=== PATIENT | female | born 1965 | race Caucasian/White ===

== ENCOUNTER → 2016-04-05 | Outpatient (CLI) | payer OTHER | END | disposition home or self-care (01) | LOC: LABPAT 14:38 | PROVIDERS: ATTEND Orthopaedic Surgery | DX: Z01.812 Encounter for preprocedural laboratory examination (principal) | CPT/HCPCS: 87070 ==

== ENCOUNTER 2016-05-06 06:02 | Inpatient (IN) | payer OTHER ==
[2016-05-01 14:38] VITALS: BMI 52.4
--- NOTE | 2016-05-05 12:06 | HP ---
DATE OF ADMISSION: 05/06/2016 Delores Agosto is a 50-year-old patient seen with symptomatic left knee osteoarthritis. After having treatment options discussed, she elected to proceed with left total knee arthroplasty. Consent was obtained. Medical clearance was provided Dr. Clifford's office. Past medical history is hyperlipidemia, hypertension. Past surgical history is right knee arthroscopy, right total knee arthroplasty, left knee arthroscopy. DAILY MEDICATIONS: 1. Atorvastatin. 2. Lansoprazole. 3. Spironolactone. 4. Multiple gmms-dwe-cfhnnmg vitamins. Allergies are MORPHINE, CODEINE, TALWIN, LORTAB, TRAMADOL. SOCIAL HISTORY: Patient denies tobacco use. Physical evaluation of the left knee: Range of motion is -3 to 110 degrees. There is tenderness along the medial joint line. Positive medial Taz's. Ligaments are stable. Hip rotation is without pain. Crepitus along the patellofemoral compartment as well as medial compartment and lateral compartments with range of motion, pain on patellofemoral compression. Hip rotation without pain. Distal neurovascular exam is intact. Radiographs which were obtained of the left knee revealed severe osteoarthritis involving all 3 compartments. IMPRESSION: Left knee osteoarthritis. PLAN: Left total knee arthroplasty.
[~2016-05-06 06:02] MED LIST: ACETAMINOPHEN TAB 500 MG TAB PO ONE; DEXAMETHASONE SOD PHOSPHATE 10 MG/ML 1 ML VIAL IV ONE; LACTATED RINGERS 1,000 ML IV SCH; MELOXICAM 7.5 MG TAB PO ONE; MIDAZOLAM 2 MG/2 ML VIAL IV PRN; ONDANSETRON 4 MG/2 ML VIAL IVP ONE; SCOPOLAMINE 1.5MG/72HR PATCH TRANSDERM ONE; TRANEXAMIC ACID 1,000 MG in SODIUM CHLORIDE 0.9% 100 ML IVPB ONE; ceFAZolin 3 GM in SODIUM CHLORIDE 0.9% 100 ML IVPB ONE; fentaNYL (PF) 50 MCG/ML 2 ML AMP IV PRN
[2016-05-06] MEDS ORDERED: ROPIVACAINE 1,100 MG, SODIUM CHLORIDE 0.9% 330 ML MISCELLANE PRN ×2 (07:19)
--- NOTE | 2016-05-06 07:22 | P.ONQ ---
Anesthesiology Proc Note - PNB - Peripheral Nerve Block Performed Left Adductor Canal Procedure Start Time: 07:00 Procedure Stop Time: 07:15 Indication: Acute Post-Operative Pain, Analgesia Sedation Type: Awake Preparation: Sterile Prep Position: Supine Catheter: Indwelling Needle Types: On-Q Needle Size: 50mm (2") Needle Gauge: 18 Technique: Ultrasound Injectate: 0.5% Ropivacaine (see comment for volume) Blood Aspirated: No Pain Paresthesia on Injection Noted: No Resistance on Injection: Normal Events: Uneventful and Well Tolerated
[2016-05-06] MEDS ORDERED: LIDOCAINE 1% INJ 10MG/ML (20 ML MDV) ONE (07:29)
[2016-05-06] MEDS ORDERED: ACETAMINOPHEN IV (For NPO) 1,000 MG/100 ML VIAL ONE (07:29)
[2016-05-06] MEDS ORDERED: KETOROLAC 30 MG/ML 1 ML VIAL ONE (07:29)
[2016-05-06] MEDS ORDERED: ROCURONIUM BROMIDE 10 MG/ML 10 ML VIAL IV ONE (07:29)
[2016-05-06] MEDS ORDERED: PROPOFOL 10 MG/ML 20 ML VIAL IV ONE (07:29)
[2016-05-06] MEDS ORDERED: MIDAZOLAM 2 MG/2 ML VIAL ONE (07:29)
[2016-05-06] MEDS ORDERED: LABETALOL 5 MG/ML VIAL MDV ONE (07:29)
[2016-05-06] MEDS ORDERED: TRANEXAMIC ACID 1,000 MG/10 ML VIAL ONE (07:29)
[2016-05-06] MEDS ORDERED: SUCCINYLCHOLINE CHLORIDE VIAL 200 MG/10 ML VIAL IV ONE (07:29)
[2016-05-06] MEDS ORDERED: SODIUM CHLORIDE 0.9% 100 ML BAG ONE (07:29)
[2016-05-06] MEDS ORDERED: fentaNYL (PF) 50 MCG/ML 2 ML AMP ONE (07:29)
[2016-05-06] MEDS ORDERED: ROPIVACAINE 246.25 MG, EPINEPHrine 0.5 MG, KETOROLAC 30 MG, cloNIDine HCL/PF 80 MCG, WA... MISCELLANE ONE ×5 (07:35)
[2016-05-06] MEDS ORDERED: LACTATED RINGERS 1,000 ML IV ONE ×2 (08:16→09:20)
[2016-05-06] MEDS ORDERED: ceFAZolin 3,000 MG in SODIUM CHLORIDE 0.9% IRRIGATIO 3,000 ML IRRIGATION ONE (08:17)
[2016-05-06] MEDS ORDERED: HYDROmorphone 1 MG/ML 1 ML SYRINGE IVP PRN ×3 (09:54)
[2016-05-06] MEDS ORDERED: HYDROcodone/APAP 7.5-325MG 1 EACH TAB PO PRN (09:54)
[2016-05-06] MEDS ORDERED: TEMAZEPAM 15 MG CAP PO PRN (09:54)
[2016-05-06] MEDS ORDERED: ONDANSETRON 4 MG/2 ML VIAL IVP PRN (09:54)
[2016-05-06] MEDS ORDERED: NALOXONE 0.4 MG/ML 1 ML VIAL IV PRN (09:54)
--- NOTE | 2016-05-06 09:54 | P.OP ---
Date of Procedure: 05/06/16 Preoperative Diagnosis: Left knee osteoarthritis Postoperative Diagnosis: Left knee osteoarthritis Procedure(s) Performed: Left total knee arthroplasty Implants: 1. Conrado persona size 9 left narrow cemented cruciate retaining femoral component 2. Conrado persona size F left cemented tibial component 3. Conrado persona 10 mm medial congruent left polyethylene tibial insert 4. Conrado persona 38 mm all polyethylene cemented patella Anesthesia: GETA, regional (Adductor canal block), local Surgeon: Andrew Bliss Stretcher Leveler Operator Helper #1: Ole Gramajo Estimated Blood Loss (ml): 50 Pathology: other (Bone) Condition: stable Disposition: PACU Indications for Procedure: 50-year-old patient seen with symptomatic left knee osteoarthritis. After treatment options were discussed, she elected to proceed with left total knee arthroplasty. Operative Findings: See description of procedure Description of Procedure: Patient was taken to the operative suite after having undergone and adductor canal block. Patient underwent a general anesthetic by the department of anesthesia. Patient was given preoperative IV intake antibiotics and TXA. A well-padded tourniquet was placed about the left lower extremity. The lower extremity was then prepped and draped in the normal sterile orthopedic fashion. The extremity was elevated, a tourniquet was insufflated to 350. A standard anterior incision was made sharply through skin. Dissection was taken down through the subcutaneous soft tissues down to the extensor mechanism. A medial arthrotomy was performed, patella was everted and knee was flexed. There was advanced osteoarthritis noted involving all 3 compartments. A proximal tibial cutting guide was positioned. Proximal tibial cut was made. A distal intramedullary femoral cutting guide was positioned, distal femoral cut made. We placed the appropriate sizing guide and selected the appropriate size. A distal 4-in-1 femoral cutting block was positioned, distal femoral cuts were made. We now placed a trial femoral component into position, along with an appropriate size tibial tray and insert. We now took the knee through range of motion and had full extension good flexion and good overall soft tissue balance noted. The patella was everted and a flush cut made with patellar quad tendon. We templated the patella, appropriate drill holes were made. An appropriate trial patella was positioned, knee was taken through full range of motion with the patella tracking very nicely. The trial patella was removed. Drill holes were made through the femoral component. All trial components were removed after marking off the appropriate rotation of the tibia. Retractors were now positioned along the proximal tibia. An appropriate keel punch was made with the appropriate size tibial guide. At this point appropriate size implants were chosen and opened. The joint was irrigated copiously with pulse lavage mechanical irrigation. The deep soft tissues were infiltrated local analgesic. We mixed antibiotic methylmethacrylate. Once the methyl methacrylate was ready, the tibial component was cemented into place removing any excess methylmethacrylate. The femoral component was cemented into place removing the removing any excess methylmethacrylate. We then inserted the appropriate size polyethylene tibial insert. We made sure that it was locked into position. We took the knee into full extension, and then back in a flexion making sure we had removed any excess methylmethacrylate. The patellar component was then cemented down and secured with clamp. Excess methylmethacrylate removed. We kept the knee in full extension, patellar clamp in position until methylmethacrylate had hardened. Once it had hardened the patellar clamp was removed. The knee was taken through full range of motion. The patella tracked nicely. There was good soft tissue balancing. The tourniquet was now released. Additional hemostasis was achieved via electrocautery. A second gram of TXA was given. The wound was irrigated with pulse lavage mechanical irrigation. The superficial soft tissues were infiltrated local analgesic. The extensor mechanism was repaired with Vicryl. We checked the repair with range of motion and it was stable. The subcutaneous soft tissues were repaired with Vicryl in layers. The skin was approximated with pernio/Dermabond. Sterile dressings were applied followed by loose web roll and Noel bandage. The patient was transferred to a bed, and taken to recovery in stable and satisfactory condition. Ole PRIETO assisted with the procedure.
[2016-05-06] MEDS ORDERED: ROPIVACAINE 5 MG/ML 30 ML VIAL MISCELLANE ONE (10:35)
[2016-05-06] MEDS ORDERED: ONDANSETRON 4 MG/2 ML VIAL IVP ONE (10:53)
[2016-05-06] MEDS ORDERED: HYDROmorphone 1 MG/ML 1 ML SYRINGE IVP ONE ×2 (10:54→10:59)
[2016-05-06] MEDS ORDERED: SODIUM CHLORIDE 0.9% 1,000 ML IV ONE (11:32)
--- NOTE | 2016-05-06 13:15 | P.CONS ---
History of Present Illness - Reason for Consult Consult date: 05/06/16 Medical management Requesting physician: Andrew Bliss - Chief Complaint Left total knee arthroplasty - History of Present Illness This is a 50-year-old female, patient of [facility]. She has a known past medical history of hyperlipidemia, hypertension and GERD. She has been suffering with left knee pain and underwent a left total knee arthroplasty with Dr. Bliss. She is postop day #0. Estimated blood loss was 50 mL. No complications. Patient is sitting in bed comfortably. Denies any chest pain, shortness of breath, nausea or vomiting. Did have a bowel movement prior to surgery. Denies any difficulty or burning with urination prior to surgery. Currently has Green catheter in place. We've been consulted for medical management. Review of Systems Please refer to HPI otherwise unremarkable Past Medical History Past Medical History: GERD/Reflux, Hyperlipidemia, Hypertension History of Any Multi-Drug Resistant Organisms: None Reported Past Surgical History: Orthopedic Surgery Additional Past Surgical History / Comment(s): LEFT KNEE ARTHROSCOPY X2, RT KNEE ARTHROSCOPY, MIKE FOOT SX ON TOES Past Anesthesia/Blood Transfusion Reactions: Postoperative Nausea & Vomiting ( PONV) Past Psychological History: No Psychological Hx Reported Smoking Status: Never smoker Past Alcohol Use History: Occasional Past Drug Use History: None Reported - Past Family History Mother Family Medical History: No Reported History Medications and Allergies Home Medications Medication Instructions Recorded Confirmed Type Ascorbic Acid [Vitamin C] 500 mg PO DAILY 05/01/16 05/06/16 History Atorvastatin [Lipitor] 10 mg PO DAILY 05/01/16 05/06/16 History Biotin 5 mg PO DAILY 05/01/16 05/06/16 History Lansoprazole [Prevacid] 30 mg PO DAILY 05/01/16 05/06/16 History Motrin Unknown Dose 1 tab PO DIRECTED PRN 05/01/16 05/06/16 History Multivitamins, Thera [Multivitamin] 1 tab PO DAILY 05/01/16 05/06/16 History Spironolactone 50 mg PO DAILY 05/01/16 05/06/16 History Allergies Allergy/AdvReac Type Severity Reaction Status Date / Time codeine AdvReac Nausea & Verified 05/06/16 06:18 Vomiting hydrocodone [From Lortab] AdvReac Nausea & Verified 05/06/16 06:22 Vomiting morphine AdvReac Nausea & Verified 05/06/16 06:18 Vomiting tramadol AdvReac Nausea & Verified 05/06/16 06:18 Vomiting Physical Exam Vitals: Vital Signs Temp Pulse Resp BP Pulse Ox 05/06/16 11:15 89 16 125/61 97 05/06/16 11:00 83 16 129/65 93 L 05/06/16 10:47 89 18 133/69 95 05/06/16 10:35 85 16 140/70 99 05/06/16 10:28 86 16 138/70 98 05/06/16 10:15 97.0 F L 83 14 127/66 97 05/06/16 06:25 97.9 F 82 16 137/78 96 Intake and Output 05/05/16 05/06/16 05/06/16 22:59 06:59 14:59 Intake Total 600 5500 Output Total 395 Balance 600 5105 Intake: IV 600 5500 Output: Urine 345 Estimated Blood Loss 50 Other: Weight 147.418 kg Patient Weight 05/07/16 06:59 Weight 147.418 kg Head normocephalic Neck supple Lungs clear to auscultation bilaterally no wheezing or crackles Heart regular rate and rhythm S1-S2, no rub or gallop Abdomen is soft nontender nondistended positive bowel sounds no hepatosplenomegaly Extremities no edema. Left knee Noel wrapped. Dressing clean dry and intact. + 2 dorsalis pedis pulse. Able to wiggle her toes Neuro alert and orientated to 3 Assessment and Plan Plan: 1. Osteoarthritis of the left knee: Status post Left total knee arthroplasty postoperative day #0. Estimated blood loss 50 mL. Continue pain management per orthopedic protocol 2. Hyperlipidemia resume statin 3. Essential hypertension resume her Aldactone 4. GERD: Continue with Pepcid GI prophylaxis Pepcid and DVT prophylaxis Lovenox per orthopedic protocol We'll check CBC and CMP. Patient for this consultation we will continue to follow along with you. Time with Patient: Greater than 30 (Greater than 50% of the total time spent in counseling and coordination of care.I performed an examination of the patient and discussed their management with the physician Physician Specialist. I have reviewed the Physician Physician Specialist's notes and agree with the documented findings and plan of care)
[2016-05-06] MEDS: HYDROcodone/APAP 7.5-325MG 1 EACH TAB PO PRN (13:55)
[2016-05-06] MEDS: hydrOXYzine PAMOATE 25 MG CAP PO PRN (13:55)
[2016-05-06 14:10] LABS: Basophils % (A) 0 %; CH 30.2; CHCM 32.8; Eosinophils % (A) 0 %; HCT 38.6 % (34.0-46.0); HDW 2.49; HGB 12.6 gm/dL (11.4-16.0); Luc # (Auto) 0.05; Luc % (Auto) 0; Lymphocytes # (A) 0.7 k/uL (1.0-4.8); Lymphocytes % (A) 6 %; MCH 30.1 pg (25.0-35.0); MCHC 32.6 g/dL (31.0-37.0); MCV 92.3 fL (80.0-100.0); Mean Platelet Volume 8.2; Monocytes # (A) 0.2 k/uL (0-1.0); Monocytes % (A) 2 %; Neutrophils # (A) 9.6 k/uL (1.3-7.7); Neutrophils % (A) 91 %; RBC 4.19 m/uL (3.80-5.40); RDW 12.5 % (11.5-15.5); WBC 10.6 k/uL (3.8-10.6); WBC (Perox) 10.29
[2016-05-06 14:14] LABS: ALT 45 U/L (9-52); AST 37 U/L (14-36); Alkaline Phosphatase 71 U/L (38-126); Anion Gap 13 mmol/L; Blood Urea Nitrogen 16 mg/dL (7-17); Calcium 9.3 mg/dL (8.4-10.2); Carbon Dioxide 23 mmol/L (22-30); Chloride 104 mmol/L (98-107); Glucose 167 mg/dL (74-99); Non-African American GFR(MDRD) >60 (>60 ml/min/1.73 sqM); Sodium 140 mmol/L (137-145); Total Bilirubin 0.5 mg/dL (0.2-1.3); Total Protein 6.7 g/dL (6.3-8.2)
[2016-05-06 14:18] LABS: Potassium 4.9 mmol/L (3.5-5.1)
[2016-05-06] MEDS: ceFAZolin 3 GM in SODIUM CHLORIDE 0.9% 100 ML IVPB SCH (16:06)
[2016-05-06] MEDS: LACTATED RINGERS 1,000 ML IV SCH (16:08)
--- NOTE | 2016-05-06 16:10 | XR ---
EXAMINATION TYPE: XR knee limited LT DATE OF EXAM: 05/06/2016 10:57 AM CLINICAL HISTORY: Postoperative evaluation Two views of the left knee are submitted. Identified are changes of total knee arthroplasty with fem oral and tibial components appearing well seated. Postsurgical soft tissue changes are noted. Align ment is anatomic.
[2016-05-06] MEDS: SENNOSIDES-DOCUSATE SODIUM 1 EACH TAB PO SCH (20:45)
[2016-05-07] MEDS: ceFAZolin 3 GM in SODIUM CHLORIDE 0.9% 100 ML IVPB SCH (00:49)
[2016-05-07] MEDS: HYDROcodone/APAP 7.5-325MG 1 EACH TAB PO PRN ×4 (04:41→21:17)
[2016-05-07] MEDS: hydrOXYzine PAMOATE 25 MG CAP PO PRN ×2 (04:42→21:18)
[2016-05-07] MEDS: LACTATED RINGERS 1,000 ML IV SCH ×3 (04:44→16:08)
[2016-05-07 07:31] LABS: Basophils % (A) 0 %; CH 30.2; CHCM 31.6; Eosinophils % (A) 0 %; HCT 35.5 % (34.0-46.0); HDW 2.38; HGB 11.2 gm/dL (11.4-16.0); Luc # (Auto) 0.28; Luc % (Auto) 2; Lymphocytes # (A) 1.7 k/uL (1.0-4.8); Lymphocytes % (A) 15 %; MCH 30.1 pg (25.0-35.0); MCHC 31.4 g/dL (31.0-37.0); MCV 95.8 fL (80.0-100.0); Mean Platelet Volume 8.1; Monocytes # (A) 0.7 k/uL (0-1.0); Monocytes % (A) 6 %; Neutrophils % (A) 76 %; RBC 3.71 m/uL (3.80-5.40); RDW 12.5 % (11.5-15.5); WBC 11.7 k/uL (3.8-10.6); WBC (Perox) 12.46
[2016-05-07] MEDS: SPIRONOLACTONE 25 MG TAB PO SCH (08:26)
[2016-05-07] MEDS: FAMOTIDINE 20 MG TAB PO SCH (08:27)
[2016-05-07] MEDS: ENOXAPARIN 30 MG/0.3 ML SYRINGE SQ SCH ×2 (08:27→20:25)
[2016-05-07] MEDS: ATORVASTATIN 10 MG TAB PO SCH (08:27)
[2016-05-07] MEDS: MELOXICAM 7.5 MG TAB PO SCH (08:27)
[2016-05-07] MEDS: ASCORBIC ACID 500 MG TAB PO SCH (08:28)
--- NOTE | 2016-05-07 11:26 | P.PN ---
Subjective Principal diagnosis: Status post left total knee arthroplasty Patient seen today resting in her hospital chair. Patient is a little fatigued today, she feels the pain medication may be a little too strong. She is ambulated with therapy. She denies headaches, lightheadedness, chest pain, shortness of breath, fever or chills. Objective - Vital Signs Vital signs: Vital Signs Temp 96.0 F L 05/07/16 07:56 Pulse 57 L 05/07/16 07:56 Resp 16 05/07/16 07:56 BP 121/69 05/07/16 07:56 Pulse Ox 99 05/07/16 07:56 Intake & Output 05/06/16 05/07/16 05/07/16 18:59 06:59 18:59 Intake Total 5980 1200 480 Output Total 395 3700 900 Balance 5585 -2500 -420 Weight 147.418 kg Intake: IV 5500 1200 Lactated Ringers 1,000 ml 1200 @ 100 mls/hr IV .Q10H CHRISTINE Rx#:[id number] Oral 480 480 Output: Urine 345 3700 900 Uretheral (Green) 3700 600 Estimated Blood Loss 50 Other: Voiding Method Indwelling Catheter Indwelling Catheter Indwelling Catheter - Exam Left lower extremity: Incision is clean, dry, and intact. Medial and lateral aspects of the incision there is minimal ecchymosis present. Calf is soft, no tenderness with palpation. Plantar flexion, dorsiflexion, EHL, FHL are intact. Sensory exam to light touch throughout the extremities intact, cap refills less than 3 seconds. - Labs CBC & Chem 7: 05/07/16 07:01 05/06/16 13:35 Labs: Abnormal Lab Results - Last 24 Hours (Table) 05/06/16 05/06/16 05/07/16 Range/Units 13:35 13:35 07:01 WBC 11.7 H (3.8-10.6) k/uL RBC 3.71 L (3.80-5.40) m/uL Hgb 11.2 L (11.4-16.0) gm/dL Neutrophils # 9.6 H 9.0 H (1.3-7.7) k/uL Lymphocytes # 0.7 L (1.0-4.8) k/uL Glucose 167 H (74-99) mg/dL AST 37 H (14-36) U/L Assessment and Plan Plan: Assessment: 1. Postop day #1 status post left total knee arthroplasty Plan: 1. Pain control, continue supportive oral medications. We'll decrease pain medication at this time 2. Continue CPM and therapy 3. Daily dressing changes/ice and elevate 4. Encourage incentive spirometer 5. GI and DVT prophylaxis, we'll begin Xarelto 10 mg tomorrow and discontinue Lovenox 6. Medical recommendations 7. Discharge planning: Patient will be discharged home likely tomorrow Time with Patient: Less than 30
--- NOTE | 2016-05-07 11:27 | P.DS ---
Providers Date of admission: 05/06/16 06:02 Expected date of discharge: 05/08/16 Attending physician: Andrew Bliss Consults: 05/06/16 09:54 Consult Physician Routine Consulting Provider: Drake Marcus Consult Reason/Comments: Medical management Do you want consulting provider notified?: Yes Primary care physician: Bridget Clifford Hospital Course: Date of admission: 05/06/2016 Date of discharge: 05/08/2016 Admission diagnosis: Status post left total knee arthroplasty Discharge diagnosis: Same Attending physician: Dr. Bliss Surgical procedures: Left total knee arthroplasty Brief history: Patient is a 50-year-old female with a history of progressive primary left knee osteoarthritis. At this point patient has failed conservative treatment measures and has opted to proceed with a elective left total knee arthroplasty. Hospital course: Details of patient's surgery can be found in operative report. Patient tolerated the procedure well and was subsequently transported to orthopedic floor. Patient's orthopeidc and medical care was provided daily. Patient had daily laboratory tests performed for evaluation of overall blood counts. Patient had daily physical therapy to include strengthening range of motion as well as education with walker ambulation. Patient had daily CPM usage as part of their physical therapy program. Patient was treated with Xarelto and Lovenox for their postoperative DVT prophylaxis during their inpatient stay. Patient was noted to have a relatively uneventful postoperative course. Patient reported satisfactory pain control with oral pain medications by postoperative day 0. Patient showed satisfactory progress with physical therapy. Patient moved steadily through the program and had no difficulty meeting the goals by postoperative day 2. Given patient's otherwise satisfactory course and having met physical therapy goals, plan is to discharge patient home on postoperative day 2. Discharge condition/disposition: Patient will be discharged home in stable condition. Discharge medications: Instructions are given on resumption of patient's normal daily medications per primary care recommendation, in addition patient will be prescribed [place] 7.5 mg/325 mg, tramadol 50 mg, Colace 100 mg, Xarelto 10 mg. Discharge instructions: 1. Wound care and infection precautions, keep incision dry and covered while showering, no lotions, creams, moisturizers. No soaking, tubs, pools, hottubs. Do not scrub over the incision. 2. Weight-bear as tolerated with walker / cane until follow-up. 3. Ice and elevate when necessary. Do not exceed 20 minutes per hour with ice pack. 4. Utilize compression sleeve until seen at first follow up appointment. 5. Visiting nursing care. 6. Home physical therapy including home CPM. 7. Pain meds and anticoagulants per prescription. 8. Pain medication has potential to cause constipation. Increase oral fluid and fiber intake. Contact primary care provider if you have not had a bowel movement within 48 hours after discharge 9. No anti-inflammatory medication until discussed at first post operative visit, this including Motrin, Aleve, Mobic, Diclofenac. 10. Follow up in office at 2 weeks postop with Jayesh Gramajo PA-C 11. Follow up with your primary care doctor 7-10 days after discharge. 12. Contact [facility] with any questions, . Procedures: Left total knee arthroplasty Patient Condition at Discharge: Good Plan - Discharge Summary New Discharge Prescriptions: Docusate [Colace] 100 mg PO DAILY #20 capsule HYDROcodone/APAP 7.5-325MG [[place] 7.5-325] 1 - 2 each PO Q6HR PRN #60 tab PRN Reason: Pain Rivaroxaban [Xarelto] 10 mg PO DAILY #14 tab traMADol HCl [Ultram] 50 mg PO Q6H PRN #40 tab PRN Reason: Pain Discharge Medication List Ascorbic Acid [Vitamin C] 500 mg PO DAILY 05/01/16 [History] Atorvastatin [Lipitor] 10 mg PO DAILY 05/01/16 [History] Biotin 5 mg PO DAILY 05/01/16 [History] Lansoprazole [Prevacid] 30 mg PO DAILY 05/01/16 [History] Multivitamins, Thera [Multivitamin] 1 tab PO DAILY 05/01/16 [History] Spironolactone 50 mg PO DAILY 05/01/16 [History] Rivaroxaban [Xarelto] 10 mg PO DAILY #14 tab 05/06/16 [Rx] Docusate [Colace] 100 mg PO DAILY #20 capsule 05/08/16 [Rx] HYDROcodone/APAP 7.5-325MG [[place] 7.5-325] 1 - 2 each PO Q6HR PRN #60 tab [Rx] traMADol HCl [Ultram] 50 mg PO Q6H PRN #40 tab 05/08/16 [Rx] Follow up Appointment(s)/Referral(s): Ole Gramajo PAC [PHYSICIAN PONY TRIMMER] - 05/22/16 2:20 pm Bridget Clifford DO [Primary Care Provider] - 05/22/16 1:00 pm Patient Instructions/Handouts: *Surgery [facility] - Scopalamine Patch Instructions, Knee Replacement (DC) Activity/Diet/Wound Care/Special Instructions: [facility] - Orthopedic Discharge Instructions: 1. Wound care and infection precautions, keep incision dry and covered while showering, no lotions, creams, moisturizers. No soaking, pools, hot tubs. Do not scrub over incision. 2. Weight-bear as tolerated with walker / cane until follow-up. 3. Ice and elevate when necessary. Do not exceed 20 minutes per hour with ice pack. 4. Utilize compression sleeve until seen at first follow up appointment. 5. Visiting nursing care. 6. Home physical therapy including home CPM. 7. Pain meds and anticoagulants per prescription. 8. Pain medication has potential to cause constipation. Increase oral fluid and fiber intake. Contact primary care provider if you have not had a bowel movement within 48 hours after discharge. 9. No anti-inflammatory medication until discussed at first post operative visit, this including Motrin, Aleve, Mobic, Diclofenac. 10. Follow up in office at 2 weeks postop with Jayesh Gramajo PA-C 11. Follow up with your primary care doctor 7-10 days after discharge. 12. Contact [facility] with any questions, . Discharge Disposition: HOME WITH HOME HEALTH SERVICES
[2016-05-07] MEDS: MULTIVITAMINS, THERA 1 EACH TAB PO SCH (12:14)
--- NOTE | 2016-05-07 16:54 | P.PN ---
Subjective Patient is a 50-year-old female, patient [facility] She has a known past medical history of hyperlipidemia, hypertension and GERD. She has been suffering with left knee pain and underwent a left total knee arthroplasty with Dr. Bliss. She is postop day #1. Patient is sitting in bed comfortably. Denies any chest pain, shortness of breath, nausea or vomiting. Did have a bowel movement prior to surgery. Denies any difficulty or burning with urination prior to surgery. Objective - Vital Signs Vital signs: Vital Signs Temp 97.9 F 05/07/16 14:27 Pulse 88 05/07/16 14:27 Resp 17 05/07/16 14:27 BP 159/95 05/07/16 14:27 Pulse Ox 99 05/07/16 14:27 Intake & Output 05/06/16 05/07/16 05/07/16 18:59 06:59 18:59 Intake Total 5980 1200 960 Output Total 395 3700 900 Balance 5585 -2500 60 Weight 147.418 kg Intake: IV 5500 1200 Lactated Ringers 1,000 ml 1200 @ 100 mls/hr IV .Q10H CHRISTINE Rx#:[id number] Oral 480 960 Output: Urine 345 3700 900 Uretheral (Green) 3700 600 Estimated Blood Loss 50 Other: Voiding Method Indwelling Catheter Indwelling Catheter Indwelling Catheter - Exam HEENT head normocephalic and atraumatic Neck is supple no JVD no goiter no lymphadenopathy Chest is clear to auscultation no wheezing Cardiac exam reveals regular heart sounds no murmurs Abdomen is soft nontender no organomegaly Extremity exam reveals no edema no cyanosis or clubbing - Labs CBC & Chem 7: 05/07/16 07:01 05/06/16 13:35 Labs: Abnormal Lab Results - Last 24 Hours (Table) 05/07/16 Range/Units 07:01 WBC 11.7 H (3.8-10.6) k/uL RBC 3.71 L (3.80-5.40) m/uL Hgb 11.2 L (11.4-16.0) gm/dL Neutrophils # 9.0 H (1.3-7.7) k/uL Assessment and Plan Plan: 1. Osteoarthritis of the left knee: Status post Left total knee arthroplasty postoperative day #1. Continue pain management per orthopedic protocol 2. Hyperlipidemia resume statin 3. Essential hypertension resume her Aldactone 4. GERD: Continue with Pepcid GI prophylaxis Pepcid and DVT prophylaxis Lovenox per orthopedic protocol We'll check CBC and CMP in a.m. possible discharge to home tomorrow
[2016-05-07] MEDS: SENNOSIDES-DOCUSATE SODIUM 1 EACH TAB PO SCH (20:25)
[2016-05-08] MEDS: LACTATED RINGERS 1,000 ML IV SCH (02:17)
[2016-05-08] MEDS: hydrOXYzine PAMOATE 25 MG CAP PO PRN (02:18)
[2016-05-08] MEDS: HYDROcodone/APAP 7.5-325MG 1 EACH TAB PO PRN ×2 (02:18→08:15)
[2016-05-08 07:33] LABS: Basophils # (A) 0.1 k/uL (0-0.2); Basophils % (A) 1 %; CH 30.2; CHCM 31.6; Eosinophils # (A) 0.1 k/uL (0-0.7); Eosinophils % (A) 2 %; HCT 36.3 % (34.0-46.0); HDW 2.31; HGB 11.3 gm/dL (11.4-16.0); Luc # (Auto) 0.24; Luc % (Auto) 3; Lymphocytes # (A) 2.2 k/uL (1.0-4.8); Lymphocytes % (A) 25 %; MCH 29.9 pg (25.0-35.0); MCHC 31.2 g/dL (31.0-37.0); Mean Platelet Volume 8.1; Monocytes # (A) 0.6 k/uL (0-1.0); Monocytes % (A) 7 %; Neutrophils # (A) 5.6 k/uL (1.3-7.7); Neutrophils % (A) 63 %; RBC 3.78 m/uL (3.80-5.40); RDW 12.5 % (11.5-15.5); WBC 8.8 k/uL (3.8-10.6); WBC (Perox) 9.37
[2016-05-08 07:38] LABS: ALT 27 U/L (9-52); AST 23 U/L (14-36); Alkaline Phosphatase 65 U/L (38-126); Anion Gap 10 mmol/L; Blood Urea Nitrogen 12 mg/dL (7-17); Calcium 9.3 mg/dL (8.4-10.2); Carbon Dioxide 25 mmol/L (22-30); Chloride 104 mmol/L (98-107); Glucose 96 mg/dL (74-99); Non-African American GFR(MDRD) >60 (>60 ml/min/1.73 sqM); Potassium 4.4 mmol/L (3.5-5.1); Sodium 139 mmol/L (137-145); Total Bilirubin 0.9 mg/dL (0.2-1.3); Total Protein 6.6 g/dL (6.3-8.2)
[2016-05-08 08:00] VITALS: BP 148/81; PULSE 94; RESP 17; TEMP 96.6
[2016-05-08] MEDS: MELOXICAM 7.5 MG TAB PO SCH (08:15)
[2016-05-08] MEDS: FAMOTIDINE 20 MG TAB PO SCH (08:15)
[2016-05-08] MEDS: SPIRONOLACTONE 25 MG TAB PO SCH (08:15)
[2016-05-08] MEDS: ASCORBIC ACID 500 MG TAB PO SCH (08:15)
[2016-05-08] MEDS: ATORVASTATIN 10 MG TAB PO SCH (08:15)
[2016-05-08] MEDS: MULTIVITAMINS, THERA 1 EACH TAB PO SCH (08:15)
[2016-05-08] MEDS ORDERED: RIVAROXABAN 10 MG TAB PO SCH (09:00)
--- NOTE | 2016-05-08 09:15 | P.PN ---
Progress Note - Text The patient is status post right adductor canal catheter placement. The catheter was placed for postoperative pain control, status post total right arthroplasty. Ropivacaine 0.2% is infusing at 12 mLs per hour. The patient has no complaints of right lower extremity numbness or weakness. Patient's VAS score is 4 -10. Assessment: Patient's adductor canal catheter is in place and working appropriately. Plan: The adductor canal catheter will be DC'd this morning, the fluid has all been used. Pain meds will be provided to the patient by the service.
--- NOTE | 2016-05-08 11:39 | P.PN ---
Subjective Principal diagnosis: Status post left total knee arthroplasty Patient seen today resting in her hospital chair. She is ambulated with therapy. She denies headaches, lightheadedness, chest pain, shortness of breath , fever or chills. Objective - Vital Signs Vital signs: Vital Signs Temp 96.6 F L 05/08/16 07:59 Pulse 94 05/08/16 07:59 Resp 17 05/08/16 07:59 BP 148/81 05/08/16 07:59 Pulse Ox 98 05/08/16 07:59 Intake & Output 05/07/16 05/08/16 05/08/16 18:59 06:59 18:59 Intake Total 1920 680 360 Output Total 900 Balance 1020 680 360 Intake: Oral 1920 680 360 Output: Urine 900 Uretheral (Green) 600 Other: Voiding Method Indwelling Catheter Toilet Toilet # Voids 1 1 - Exam Left lower extremity: Incision is clean, dry, and intact. Medial and lateral aspects of the incision there is minimal ecchymosis present. Calf is soft, no tenderness with palpation. Plantar flexion, dorsiflexion, EHL, FHL are intact. Sensory exam to light touch throughout the extremities intact, cap refills less than 3 seconds. - Labs CBC & Chem 7: 05/08/16 06:37 05/08/16 06:37 Labs: Abnormal Lab Results - Last 24 Hours (Table) 05/08/16 Range/Units 06:37 RBC 3.78 L (3.80-5.40) m/uL Hgb 11.3 L (11.4-16.0) gm/dL Assessment and Plan Plan: Assessment: 1. Postop day #2 status post left total knee arthroplasty Plan: 1. Pain control, will discharge home on oral medication 2. Continue CPM and therapy 3. Daily dressing changes/ice and elevate 4. Encourage incentive spirometer 5. GI and DVT prophylaxis, will be discharged home on Xarelto 6. Medical recommendations 7. Discharge planning: Patient will be discharged home today Time with Patient: Less than 30
== END 2016-05-08 14:00 | disposition home health service (06) | DRG 470 ==
LOC: 2ORMAIN 06:02 → 3SUR 09:50
PROVIDERS: ADMIT Orthopaedic Surgery; ATTEND Orthopaedic Surgery
PROC: 0SRD0J9 Replacement of Left Knee Joint with Synthetic Substitute, Cemented, Open Approach (ICD-10-PCS; principal; 2016-05-06 07:30)
DX: M17.12 Unilateral primary osteoarthritis, left knee (principal); I10 Essential (primary) hypertension; E78.5 Hyperlipidemia, unspecified; K21.9 Gastro-esophageal reflux disease without esophagitis; Z96.651 Presence of right artificial knee joint; Z79.899 Other long term (current) drug therapy
CPT/HCPCS: 80053; 81025; 85025; 88300

== ENCOUNTER → 2018-08-21 | Outpatient (CLI) | payer OTHER ==
--- NOTE | 2018-08-21 14:26 | MM ---
Reason for exam: screening (asymptomatic). Baseline mammogram. History: Patient is nulliparous. Physical Findings: Nurse did not find any significant physical abnormalities on exam. MG 3D Screening Mammo W/Cad Bilateral CC and MLO view(s) were taken. There are scattered fibroglandular densities. Benign appearing bilateral calcifications. These results were verbally communicated with the patient and result sheet given to the patient on 08/21/18. ASSESSMENT: Negative, BI-RAD 1 RECOMMENDATION: Routine screening mammogram of both breasts in 1 year.
== END ==
LOC: RADMAMWWP 12:44
PROVIDERS: ATTEND Family Medicine
DX: Z12.31 Encounter for screening mammogram for malignant neoplasm of breast (principal)
CPT/HCPCS: 77063; 77067

== ENCOUNTER → 2020-02-18 | Day surgery (SDC) | payer OTHER ==
[2020-02-16 09:19] VITALS: BMI 40.3
[~2020-02-18] MED LIST changes: -ACETAMINOPHEN TAB 500 MG TAB PO ONE; -DEXAMETHASONE SOD PHOSPHATE 10 MG/ML 1 ML VIAL IV ONE; +LIDOCAINE 1% (10MG/ML) FOR IV START INTRADERMA PRN; -MELOXICAM 7.5 MG TAB PO ONE; -MIDAZOLAM 2 MG/2 ML VIAL IV PRN; -ONDANSETRON 4 MG/2 ML VIAL IVP ONE; +PROPOFOL 10 MG/ML 20 ML VIAL IV ONE; -SCOPOLAMINE 1.5MG/72HR PATCH TRANSDERM ONE; -TRANEXAMIC ACID 1,000 MG in SODIUM CHLORIDE 0.9% 100 ML IVPB ONE; -ceFAZolin 3 GM in SODIUM CHLORIDE 0.9% 100 ML IVPB ONE; -fentaNYL (PF) 50 MCG/ML 2 ML AMP IV PRN
[2020-02-18 10:10] VITALS: TEMP 97.6
--- NOTE | 2020-02-18 11:01 | P.GSHP ---
History of Present Illness H&P Date: 02/18/20 Chief Complaint: Screening colonoscopy Is a 54-year-old female presents today for screening colonoscopy. Patient denies a significant GI complaints. Past Medical History Past Medical History: GERD/Reflux, Hyperlipidemia, Hypertension History of Any Multi-Drug Resistant Organisms: None Reported Past Surgical History: Joint Replacement, Orthopedic Surgery Additional Past Surgical History / Comment(s): LEFT KNEE ARTHROSCOPY X2, RT KNEE ARTHROSCOPY, MIKE FOOT SX ON TOES, LT TKA Past Anesthesia/Blood Transfusion Reactions: Postoperative Nausea & Vomiting (PONV) Smoking Status: Never smoker - Past Family History Mother Family Medical History: No Reported History Medications and Allergies Home Medications Medication Instructions Recorded Confirmed Type Ascorbic Acid [Vitamin C] 500 mg PO DAILY 05/01/16 02/16/20 History Atorvastatin [Lipitor] 10 mg PO HS 05/01/16 02/16/20 History Biotin 5 mg PO DAILY 05/01/16 02/16/20 History Lansoprazole [Prevacid] 30 mg PO DAILY 05/01/16 02/16/20 History Spironolactone 50 mg PO HS 05/01/16 02/16/20 History Cholecalciferol [Vitamin D3 (25 2,000 unit PO DAILY 02/16/20 02/16/20 History Mcg = 1000 Iu)] Allergies Allergy/AdvReac Type Severity Reaction Status Date / Time codeine AdvReac Nausea & Verified 02/16/20 09:12 Vomiting morphine AdvReac Nausea & Verified 02/16/20 09:12 Vomiting NARCOTICS AdvReac Nausea & Uncoded 02/16/20 09:13 Vomiting Surgical - Exam Vital Signs Temp Pulse Resp BP Pulse Ox 97.6 F 55 L 16 118/74 99 02/18/20 10:08 02/18/20 10:08 02/18/20 10:08 02/18/20 10:08 02/18/20 10:08 - General well developed, well nourished, no distress - Eyes PERRL - ENT normal pinna - Neck no masses - Respiratory normal expansion - Cardiovascular Rhythm: regular - Abdomen Abdomen: soft, non tender Assessment and Plan Assessment: We'll perform screening colonoscopy
--- NOTE | 2020-02-18 11:23 | P.OP ---
Date of Procedure: 02/18/20 Preoperative Diagnosis: Screening colonoscopy Postoperative Diagnosis: Diverticulosis Procedure(s) Performed: Colonoscopy Anesthesia: MAC Surgeon: Jimy Tenorio Pathology: none sent Condition: stable Disposition: PACU Description of Procedure: The patient's placed on the endoscopy table in the lateral position. She received IV sedation. Digital rectal exam was performed which revealed no abnormalities. The flexible colonoscope was then placed patient anus passed rotator entire colon. The ileocecal valve was visualized. The cecum, ascending and transverse colon appeared normal. In the descending and and sigmoid there is moderate diverticular changes. There is no evidence of any colon polyps. The scope was then brought back into the rectum this is normal. Scope withdrawn patient.
[2020-02-18 11:34] VITALS: BP 112/61; PULSE 72; RESP 17
== END | disposition home or self-care (01) ==
LOC: ORWHC2ENDO 09:30
PROVIDERS: ATTEND Surgery
DX: Z12.11 Encounter for screening for malignant neoplasm of colon (principal); K57.30 Diverticulosis of large intestine without perforation or abscess without bleeding; K21.9 Gastro-esophageal reflux disease without esophagitis; E78.5 Hyperlipidemia, unspecified; I10 Essential (primary) hypertension; Z96.652 Presence of left artificial knee joint; Z98.890 Other specified postprocedural states; Z91.89 Other specified personal risk factors, not elsewhere classified; Z79.899 Other long term (current) drug therapy; Z88.5 Allergy status to narcotic agent; Z91.09 Other allergy status, other than to drugs and biological substances
CPT/HCPCS: J2704; G0121

== ENCOUNTER → 2021-03-16 | Outpatient (CLI) | payer OTHER ==
--- NOTE | 2021-03-16 12:06 | CT ---
EXAMINATION TYPE: CT abdomen pelvis wo/w con DATE OF EXAM: 03/16/2021 COMPARISON: None HISTORY: Adnexal mass, abdominal pelvic mass CT DLP: 4859.5 mGycm CONTRAST: CT scan of the abdomen and pelvis is performed with Oral Contrast and without and with IV Contrast, p atient injected with 100 mL of Isovue 300. FINDINGS: LUNG BASES-: No visible nodule. No infiltrate. Small fixed hernia LIVER/GB: No calcified gallstones. No space occupying hepatic lesion. Biliary tree is of normal ca liber. PANCREAS: No inflammation. No distinct mass. SPLEEN: No splenic enlargement. No lesion seen. ADRENALS: No nodule. No thickening. KIDNEYS/BLADDER: No hydronephrosis. No nephrolithiasis. No distinct renal mass. Urinary bladder g rossly unremarkable. BOWEL: Normal appendix. Normal bowel caliber. No inflammation. GENITAL ORGANS: Uterus is unremarkable. The right ovary measures a 1.9 cm while the left ovary measur es 3.7 cm. I recommend ultrasound correlation to exclude underlying mass. LYMPH NODES: No greater than 1cm abdominal or pelvic lymph nodes are appreciated. AORTA: No significant abnormality. OSSEOUS STRUCTURES: No significant abnormality is seen. OTHER: No significant additional abnormality is seen. IMPRESSION: 1. The right ovary measures a 1.9 cm while the left ovary measures 3.7 cm. I recommend ultrasound cor relation to exclude underlying mass.
== END | disposition home or self-care (01) ==
LOC: RADCTMAIN 09:53
PROVIDERS: ATTEND Family Medicine
DX: N83.8 Other noninflammatory disorders of ovary, fallopian tube and broad ligament (principal)
CPT/HCPCS: 74178; Q9967

== ENCOUNTER → 2021-05-11 | Outpatient (CLI) | payer OTHER ==
--- NOTE | 2021-05-14 11:07 | PE ---
Nuclear medicine PET/CT history: Endometrial carcinoma, initial Patient received 7.8 mCi F-18 FDG intravenously and delayed scanning was performed from the skull bas e to the mid thighs. Localization and attenuation correction CT scan was performed. Correlation to CT scan 03/16/2021 Chest and neck: There are some cervical nodes present which are nonenlarged, mild uptake is not clear ly seen within the nodes and there is uptake along the palatine tonsils which may be physiologic, mil dly asymmetric left greater than right, SUV 5.1. No supraclavicular adenopathy. There is no mediastin al, axillary, or hilar adenopathy. Coronary artery calcifications are present. Some posterior mediast inal uptake present in the retrocrural location, axial image 115 that is indeterminate, no definite a denopathy at this level, SUV is 4.1. There is no evident lung mass, no pleural or pericardial effusio n. ABDOMEN: Uptake associated with the uterus, SUV 8.3. No pelvic adenopathy or free fluid. No evident l iver mass or retroperitoneal adenopathy. There is a hiatal hernia. No ascites. Uptake in the sigmoid colon may be physiologic, there is associated diverticular change, consider: Evaluation as indicated Osseous structures show no suspicious uptake. Degenerative disc changes and facet arthropathy noted t he lower lumbar spine. IMPRESSION: Findings compatible with patient's history of endometrial carcinoma Mild uptake in the ne ck and retrocrural locations as described is indeterminate and of questionable clinical significance. Additional findings above.
== END | disposition home or self-care (01) ==
LOC: RADXRMAIN 14:13
PROVIDERS: ATTEND Obstetrics & Gynecology
DX: C54.1 Malignant neoplasm of endometrium (principal)
CPT/HCPCS: 78815; A9552

== ENCOUNTER → 2021-08-10 | Outpatient (CLI) | payer OTHER ==
--- NOTE | 2021-08-14 08:36 | MM ---
Reason for Exam: Screening (asymptomatic). Last mammogram was performed 2 year(s) and 11 month(s) ago. Patient History: Menarche at age 14. Patient has no children. Left ovary removed at age 55. Right ovary removed at age 55. Hysterectomy at age 55. Postmenopausal. Risk Values: Jasmyne 5 year model risk: 1.3%. NCI Lifetime model risk: 9.3%. Film Views: Bilateral CC views were taken. Bilateral MLO views were taken. Prior Study Comparison: 08/21/2018 Bilateral Screening Mammogram, [facility]. Tissue Density: There are scattered fibroglandular densities. Findings: Analyzed By CAD. Nodular area of focal asymmetry anterior upper-outer quadrant right breast is more defined from prior exam and incompletely disperses on 3-D images. Additional views are recommended. Unchanged chronic nodularity posterior left breast. A few scattered benign oil cyst calcifications are redemonstrated on both sides. Overall Assessment: Incomplete: need additional imaging evaluation, BI-RAD 0 Management: Special View Mammogram of both breasts. If lesion persists on supplemental views, image directed ultrasound is recommended. [facility] will attempt to contact patient to return for supplemental views and ultrasound if indicated. Right . 1. Additional views right breast to include spot 3-D CC, 3-D CC rolled medial, spot 3-D MLO, and 3-D ML views. Electronically signed and approved by: Rozina Cohen M.D. Radiologist
== END | disposition home or self-care (01) ==
LOC: RADMAMWWP 07:49
PROVIDERS: ATTEND Family Medicine
DX: Z12.31 Encounter for screening mammogram for malignant neoplasm of breast (principal); Z78.0 Asymptomatic menopausal state
CPT/HCPCS: 77063; 77067

== ENCOUNTER → 2021-08-24 | Outpatient (CLI) | payer OTHER ==
--- NOTE | 2021-08-24 10:45 | MM ---
Reason for Exam: Additional evaluation requested from abnormal screening. Last screening mammogram was performed less than 1 month ago. Patient History: Menarche at age 14. Patient has no children. Left ovary removed at age 55. Right ovary removed at age 55. Hysterectomy at age 55. Postmenopausal. Risk Values: Jasmyne 5 year model risk: 1.3%. NCI Lifetime model risk: 9.3%. Tissue Density: Right: There are scattered fibroglandular densities. Findings: Analyzed By CAD. Under compression no persistent suspicious distortion is evident. Right medial lateral view appears normal. Overall Assessment: Probably benign, BI-RAD 3 Management: Diagnostic Mammogram of the right breast in 6 months. A clinical breast exam by your physician is recommended on an annual basis and results should be correlated with mammographic findings. This exam should not preclude additional follow-up of suspicious palpable abnormalities. Results were given to the patient verbally at the time of exam. Patient should continue monthly self breast exam. Negative mammogram should not preclude biopsy of suspicious palpable abnormalities. Electronically signed and approved by: Tobi Krueger D.O. Radiologis
== END | disposition home or self-care (01) ==
LOC: RADMAMWWP 10:17
PROVIDERS: ATTEND Family Medicine
DX: R92.8 Other abnormal and inconclusive findings on diagnostic imaging of breast (principal); Z78.0 Asymptomatic menopausal state; Z90.721 Acquired absence of ovaries, unilateral
CPT/HCPCS: 77061; 77065

== ENCOUNTER 2021-09-07 07:55 | Day surgery (SDC) | payer OTHER ==
[~2021-09-07 07:55] MED LIST changes: -LIDOCAINE 1% (10MG/ML) FOR IV START INTRADERMA PRN; -PROPOFOL 10 MG/ML 20 ML VIAL IV ONE
[2021-09-07 08:11] VITALS: TEMP 97.9
[2021-09-07] MEDS ORDERED: LACTATED RINGERS 1,000 ML IV ONE (08:11)
[2021-09-07] MEDS ORDERED: PROPOFOL 10 MG/ML 20 ML VIAL IV ONE (09:12)
[2021-09-07] MEDS ORDERED: LIDOCAINE 2% INJ 20 MG/ML (2 ML VIAL) ONE (09:12)
--- NOTE | 2021-09-07 09:41 | P.PCN ---
Date of Procedure: 09/07/21 Procedure(s) Performed: BRIEF HISTORY: Patient is a 56-year-old pleasant white female scheduled for an elective colonoscopy as a part of evaluation of recent episode of acute sigmoid diverticulitis a month ago for a antibodies for 10 days. Currently symptomatic. PROCEDURE PERFORMED: Colonoscopy. PREOPERATIVE DIAGNOSIS: Recent episode of acute sigmoid diverticulitis 3 months ago.. IV sedation per Anesthesia. PROCEDURE: After informed consent was obtained, the patient, was brought into the endoscopy unit. IV sedation was administered by Anesthesia under continuous monitoring. Digital rectal examination was normal. Initially the Olympus CF-160 flexible video colonoscope was then inserted in the rectum, gradually advanced into the cecum without any difficulty. Careful examination was performed as the scope was gradually being withdrawn. Ileocecal valve and the appendiceal orifice were visualized and appeared normal. Prep was excellent. Mucosa of the cecum, ascending colon, transverse colon, descending colon, sigmoid colon, and rectum appeared normal. Scattered left sided diverticulosis Retroflexion was performed in the rectum and no lesions were seen. The patient tolerated the procedure well. IMPRESSION: Normal-appearing colon from rectum to cecum no evidence of colorectal neoplasia . Sigmoid scattered diverticulosis RECOMMENDATIONS: Findings of this examination were discussed with the patient as well as a family. She was advised to be a high-fiber diet and take fiber sup plements a regular basis. Repeat screening colonoscopy recommended in 10 years..
[2021-09-07 09:58] VITALS: BP 117/76; PULSE 69; RESP 18
== END 2021-09-07 10:21 | disposition home or self-care (01) ==
LOC: ORWHC2ENDO 07:55
PROVIDERS: ATTEND Internal Medicine Gastroenterology
DX: K57.30 Diverticulosis of large intestine without perforation or abscess without bleeding (principal); Z79.899 Other long term (current) drug therapy
CPT/HCPCS: 45378; J2704; J2001

== ENCOUNTER → 2021-12-07 | Outpatient (CLI) | payer OTHER ==
--- NOTE | 2021-12-07 13:11 | CA ---
Lexiscan Nuclear Stress Test Report Name: Delores Agosto Exam Date: 12/07/2021 10:20 Exam Location: [facility] Ht (in): 66 Wt (lb): 280 BSA: 2.31 Ordering Phys: Bridget Clifford DO Referring Phys: Angelique James PAC Technologist: John French Age: 56 Gender: F : 1965 Procedure CPT: Indications: R07.9 CHEST PAIN ICD-10 Codes: Patient History: Medications: ATORVASTATIN,,,,,, VITAMINS,,,,,, SPIRALACTOME,,,,, Meds past 24 hrs: Pretest Chest Pain: STRESS TEST Lexiscan Protocol Exercise Duration (min:sec): 01:[address] Depressions (mm): Angina Score: Reyez Score: Resting HR (bpm): 68 Peak HR (bpm): 98 Resting BP (mmHg): 123 / 92 Peak BP (mmHg): 133 / 84 MPHR: 165 Target HR: 140 % MPHR: 59 METS: 1.0 Total Dose: Peak Dose: Atropine: Double Product: 24074 BP Response: Stress Termination: INFUSION COMPLETE Stress Symptoms: NO SYMPTOMS Stress Summary: ECG ANALYSIS Resting ECG: Normal sinus rhythm normal X normal intervals Stress ECG: Normal CONCLUSIONS Negative stress test by EKG criteria Cardial lead portion of the stress test will be reported separately Dr. Conor Clancy MD (Electronically Signed) Final Date: 07 December 2021 13:11
--- NOTE | 2021-12-07 16:44 | NM ---
EXAMINATION TYPE: NM stress cardiolite complete DATE OF EXAM: 12/07/2021 COMPARISON: NONE HISTORY: Chest pain TECHNIQUE: After the intravenous administration of 9.8 mCi Tc 99m Sestamibi - Rest images obtained 4 5 minutes post injection. The patient exercised using a CHARAN protocol and 1 minute prior to peak e xercise was injected with 24.2 mCi Tc 99m Sestamibi - Stress images obtained 45 minutes post injectio n. FINDINGS: Targeted heart rate was achieved during performance of the study. Review of stress and rest SPECT jonathan ges demonstrates decreased perfusion on stress imaging involving the anterior wall as well as the api ruddy lateral region. Stress-induced ischemia is not excluded. Correlate clinically. Gated analysis paul ws normal wall motion with an estimated left ventricular ejection fraction of 63 %. IMPRESSION: Correlate for stress-induced ischemia as noted above.
== END | disposition home or self-care (01) ==
LOC: RADNMMAIN 08:27
PROVIDERS: ATTEND Family Medicine
DX: I10 Essential (primary) hypertension (principal); E78.5 Hyperlipidemia, unspecified; R07.9 Chest pain, unspecified; R06.02 Shortness of breath
CPT/HCPCS: 93017; 78452; A9500

== ENCOUNTER → 2022-01-18 | Outpatient (CLI) | payer OTHER ==
[2022-01-18 23:03] LABS: HGB 12.9 g/dL (12.0-15.0); MCH 29.7 pg (27.0-32.0); MCHC 32.3 g/dL (32.0-37.0); Mean Platelet Volume 10.8 fL (9.5-12.2); NRBC Per 100 WBC 0 /100 WBCS (0.0-0.0); Platelet Count 386 X 10*3/uL (140-440); RBC 4.35 X 10*6/uL (4.10-5.20); RDW 12.6 % (11.5-14.5); WBC 6.29 X 10*3/uL (4.50-10.00)
[2022-01-19 11:37] LABS: African American GFR (CKD) 108.5 (60.0-200.0); Anion Gap 13.2 mmol/L (10.00-18.00); Blood Urea Nitrogen 8.1 mg/dL (9.0-27.0); Carbon Dioxide 24.2 mmol/L (20.0-27.5); Non-African American GFR(CKD) 93.6 (60.0-200.0); Potassium 4.3 mmol/L (3.5-5.5)
== END | disposition home or self-care (01) ==
LOC: LABPAT 14:40
PROVIDERS: ATTEND Internal Medicine
DX: Z01.812 Encounter for preprocedural laboratory examination (principal); R06.02 Shortness of breath
CPT/HCPCS: 80051; 82565; 84520; 85027

== ENCOUNTER 2022-01-24 10:49 | Day surgery (SDC) | payer OTHER ==
[2022-01-21 14:11] VITALS: BMI 51.3
[~2022-01-24 10:49] MED LIST changes: +ALPRAZolam 0.25 MG TAB PO PRN; +ALPRAZolam 0.5 MG TAB PO PRN; +ASPIRIN 325 MG TAB PO ONE; +ATORVASTATIN 80 MG TAB PO ONE; +HEPARIN SODIUM,PORCINE 10,000 UNIT in SODIUM CHLORIDE 0.9% 1,000 ML IRRIGATION PRN; +HEPARIN SODIUM,PORCINE 2,500 UNIT in SODIUM CHLORIDE 0.9% 250 ML IRRIGATION PRN; -LACTATED RINGERS 1,000 ML IV SCH; +NITROGLYCERIN SL TABS 0.4 MG TAB SUBLINGUAL PRN; +SODIUM CHLORIDE 0.9% 1,000 ML in EMPTY BAG 1 BAG IV SCH
[2022-01-24] MEDS ORDERED: SODIUM CHLORIDE 0.9% 1,000 ML IV ONE (10:57)
[2022-01-24 11:18] VITALS: RESP 16; TEMP 99.2
[2022-01-24] MEDS ORDERED: VERAPAMIL 2.5 MG/ML 2 ML AMP ONE (12:34)
[2022-01-24] MEDS ORDERED: fentaNYL (PF) 50 MCG/ML 2 ML AMP ONE (12:34)
[2022-01-24] MEDS ORDERED: HEPARIN SODIUM 1,000 UN/ML (10ML VL) ONE (12:35)
[2022-01-24] MEDS: MIDAZOLAM 2 MG/2 ML VIAL IV ONE ×2 (13:06→13:16)
[2022-01-24] MEDS ORDERED: LIDOCAINE 1% INJ 10MG/ML (30 ML VIAL-PF) SQ ONE ×2 (13:06→13:12)
[2022-01-24] MEDS: fentaNYL (PF) 50 MCG/ML 2 ML AMP IV ONE ×2 (13:06→13:16)
[2022-01-24] MEDS ORDERED: VERAPAMIL SYRINGE (5 MG/10 ML) INTRAARTER ONE (13:13)
[2022-01-24] MEDS ORDERED: HEPARIN SODIUM 1,000 UN/ML (10ML VL) IV ONE (13:17)
[2022-01-24] MEDS ORDERED: IOPAMIDOL-370 125ML BTL INJ ONE ×2 (13:24)
--- NOTE | 2022-01-24 13:30 | P.CARDCATH ---
Description of Procedure: PROCEDURES PERFORMED: Left heart catheterization, bilateral coronary angiography INDICATION: Abnormal stress test CONSENT:I have discussed the risks, benefits and alternative therapies for the above-mentioned procedure and for both sedation/analgesia as well as necessary blood product administration, if indicated, as they pertain to this patient. The patient has indicated understanding and acceptance of the risks and procedures discussed. PROCEDURE: After the risks, benefits and alternatives of the above mentioned procedure explained in detail with the patient, informed consent was obtained. Patient was taken to the catheterization lab and prepped and draped in usual fashion. 1% lidocaine was used to anesthetize the right radial artery. A 6- Danish sheath was placed in the right radial artery using modified Seldinger technique. Left coronary angiography was performed with a 5-Danish JL 3.5 catheter and right coronary angiography was performed with a 5-Danish JR5 catheter in various views. A 5-Danish FR5 catheter was inserted into the left ventricle and pressure measurements were obtained. The right radial sheath was removed and a TR band was placed with hemostasis achieved. The patient tolerated the procedure well. Patient was transported back to the post catheterization holding area in stable condition. Conscious Sedation: Patient was monitored under the direct supervision of vision of myself for conscious sedation using Versed and fentanyl for a total duration of 13 minutes HEMODYNAMICS: Ao: 114/72 LV: 118/5, LVEDP 14 SELECTIVE CORONARY ARTERIOGRAPHY: LEFT MAIN: The left main is a large caliber vessel which bifurcates into the LAD and circumflex. There is no significant stenosis. LEFT ANTERIOR DESCENDING CORONARY ARTERY: LAD is a large caliber vessel which wraps around to the apex. There are mild luminal irregularities LEFT CIRCUMFLEX CORONARY ARTERY: Left circumflex is a moderate caliber vessel without significant stenosis. RIGHT CORONARY ARTERY: The right coronary artery is a large caliber vessel which gives off a PDA and PLV branch and is the dominant vessel. There are mild luminal irregularities with up to 10-20% stenosis. FINAL IMPRESSION: 1. Mild luminal irregularities as described above. 2. Normal left sided filling pressures PLAN: 1. Aggressive risk factor modification per most recent ACC/AHA guidelines. 2. Follow-up in the office in 1-2 weeks.
[2022-01-24 16:06] VITALS: BP 122/61; PULSE 63
== END 2022-01-24 16:35 | disposition home or self-care (01) ==
LOC: CATHCVL 10:49
PROVIDERS: ATTEND Internal Medicine
DX: I25.10 Atherosclerotic heart disease of native coronary artery without angina pectoris (principal); E78.5 Hyperlipidemia, unspecified; I10 Essential (primary) hypertension; R06.00 Dyspnea, unspecified
CPT/HCPCS: 93458; C1769 ×2; C1894; J2250; J2001; J3010; J1644; Q9967